=== PATIENT | female | born 1940 | race African-American/Black ===

== ENCOUNTER → 2020-05-17 | Outpatient (CLI) | payer OTHER ==
[~2020-05-17] MED LIST: ADVIL MULTI-SY1 EAC1 PO; AZITHROMYCIN 2250 MG PO; AZITHROMYCIN250 MG PO; BENICAR20 MG PO; CENTRUM SILVER1 EAC1 PO; ENDOCET 5-3251 EACH PO; ESTRACE0.5 MG PO; FENTANYL PA25 MCG/HR TRANSDERM; IBUPROFEN 800800 M1 PO; MUCINEX TA600 MG/TA2 PO; NORCO 7.5-3251 EACH; NORVASC5 MG PO; OXYCONTIN10 M1; PERCOCET PO; PREDNISONE 5 MG5 MG PO; PREMARIN0.3 MG PO; PROAIR HFA8.5 GM INH; ROBAXIN 750 MG750 M1; ROBITUSSIN COU118 M5 PO; SENOKOT-S1 TA1 PO; TUMS CHEWA500 MG/11 PO; TYLENOL325 MG PO; ZITHROMAX250 MG PO
== END ==
LOC: RAD 14:32
PROVIDERS: ATTEND Internal Medicine
DX: R07.9 Chest pain, unspecified (principal)

== ENCOUNTER → 2020-07-09 | Outpatient (CLI) | payer OTHER ==
[~2020-07-09] VITALS: Ht 154.9 cm; Wt 72.4 kg
[~2020-07-09] MED LIST changes: +AMITRIPTYLINE H10 M3 PO; +BAYER CHEWABLE81 MG PO; +FISH OIL 1,001000 M3 PO; +MEDROLDOSEPACK PO; +MOBIC15 MG PO; +NEURONTIN100 MG PO; +NEXIUM40 MG PO; +VITAMIN D325 MC3 PO
--- NOTE | ~2020-07-09 | HPC ---
[facility] [email or web address] [address] PAIN MANAGEMENT CONSULTATION Name: ITZEL LAW Room #: REG Yenny Rice.#: [id number] Admission: 07/09/20 Attend Phys: Katie Summers MD Discharge: Date of : 42 Report #: [id number] THIS REPORT FOR: cc: Ihsan Kirby MD, Mark A. MD Brown,Katie Jacobo MD ~ CC: Ihsan Summers DATE OF SERVICE: 07/09/2020 CHIEF COMPLAINT: Neck and right shoulder pain, right side greater than left. HISTORY: The patient is a 80-year-old female, who has been referred to the Pain Clinic for evaluation. She has cervical pain involving her neck, left arm with numbness. She has had a previous laminectomy and posterior fusion. The fusion was from C3-C7. The patient had pedicle screws placed. Last month, she started to note increased pain and discomfort involving the right arm. She has pain in the posterior portion of her shoulder blade with pain that radiates down into the arm and the forearm. The pain sometimes wakes her at night. She has been quite active. States that she was walking about a mile. She describes it as a constant ache with numbness and rates it as an 8/10. She has been started on gabapentin and is slowly titrating the level up. ALLERGIES: SULFA, THIOPENTAL, SEVERITY OF REACTION ____ 12/31/2014. MEDICATIONS: Aspirin 81 mg, Nexium 40 mg, vitamin D3, fish oil 1000 mg, gabapentin 100 mg 3 times a day, Estrace 0.5 mg. PAST MEDICAL HISTORY: Hiatal hernia, Schatzki ring, thyroid tumor resection, neck surgery by Dr. Gonzalez in 2014, bladder surgery in 2010. SOCIAL HISTORY: She is retired. REVIEW OF SYSTEMS: Wears glasses, ringing in the ears, sore throat, voice changes, numbness and tingling, lightheadedness, fevers and sweats, generally good health. DIAGNOSTIC DATA: Cervical spine MRI dated 09/27/2019, comparison made with CT 04/29/2015. Degenerative changes of the atlanto-occipital articulation present. C3/C7 vertebral bodies are fused. Mild broad posterior C7-T1 disk bulge is present with degenerative changes of the apophyseal joints. C3/C6 laminectomy defect is present. There are pedicle screws at C3, C4, C5 and C6 bilaterally with posterior rods. Spinal canal and neural foramen are normal in diameter. Spinal cord is normal in size. Foci of increased T2 and STIR signal are present in the spinal cord at C3-C4 and C5-C6. No abnormal contrast enhancement [address] [address] PAIN MANAGEMENT CONSULTATION Name: ITZEL LAW Room #: REG [facility].Sulaiman.#: [id number] Admission: 07/09/20 Attend Phys: Katie Summers MD Discharge: Date of : 42 Report #: [id number] present. Cervical vertebrae appear intact with normal marrow signal. T1-T2 and T2-T3 disk space heights reduced with endplate irregularity and posterior disk bulge/protrusions. Impression: 1. Fusion at C3 through C7 vertebral bodies. 2. C3/C6 laminectomy and pedicle screws with fusion. 3. Mild broad-based posterior C7-T1 disk bulging. 4. Posterior T1-T2 and T2-T3 disk bulge/protrusion. 5. Foci of signal abnormality in the spinal cord at C3-C4 and C5-C6, compatible with myelomalacia. PAIN CLINIC ASSESSMENT AND PQRS: 1. History of osteoarthritic changes in the neck. 2. The patient is not being treated for rheumatoid arthritis. 3. Height 5 feet 1 inch, weight 159 pounds, BMI 30. 4. Vital signs: Blood pressure 161/84, pulse 70, respiratory rate 16, room air saturation 100%. 5. Pain intensity: 8/10. 6. Fall history: The patient has not fallen in the last month. 7. Blood thinner: The patient is not on a blood thinning medication. 8. Hypertension: The patient is being treated for hypertension. 9. Opioids greater than 6 weeks: The patient is not on an opioid regimen. 10. Risk assessment tool: Low for opioid use. 11. Functional assessment tool: 48/70. 12. Recreational drug use: The patient denies. 13. Tobacco: The patient has never smoked. 14. Alcohol: The patient denies frequent use of alcoholic beverages. PHYSICAL EXAMINATION: GENERAL: The patient is a well-developed, well-nourished, black female. Appears her stated age. She is alert and oriented x 3. Her affect is appropriate. Speech is fluent. HEENT: Normocephalic, atraumatic. Extraocular eye muscles intact. The patient has a scar in the posterior portion of her occipital area down to the thoracic area. She has limited range of motion in her neck. She does complain of pain and discomfort in her right shoulder with pain down in her arms bilaterally, right side more problematic than the left. HEART: Regular rate. ABDOMEN: Nontender. LUNGS: Generally clear. MUSCULOSKELETAL: Muscle strength is judged to be 4+/5 for the major muscle groups in the upper extremity. Lower extremity muscle strength is judged to be 5-/5 for the major muscle groups in the lower extremity. IMPRESSION: [address] [address] PAIN MANAGEMENT CONSULTATION Name: ITZEL LAW Room #: REG [facility]#: [id number] Admission: 07/09/20 Attend Phys: Katie Summers MD Discharge: Date of : 42 Report #: [id number] 1. Cervical radiculopathy, right and left arm. 2. See the above past medical history. RECOMMENDATIONS: We discussed treatment options with the patient. She does have a significant problem. Given that the patient has had such a significant cervical history, I think a conservative approach would be reasonable. We will have the patient try amitriptyline 10 mg at bedtime. We will also have her try a nonsteroidal anti-inflammatory medication, Mobic; she will take 15 mg 1 tablet daily. She will also try Medrol Dosepak, a script for 21 tablets has been provided. We will consider, in the future, increasing the gabapentin to a higher level if she is able to tolerate it. We would like to thank you for letting us participate in her care. We hope she continues to improve. By: [id number] Katie Summers MD /nt
[2020-07-09 13:18] VITALS: BP 161/84
--- NOTE | 2020-07-09 14:01 | NUR ---
Pain Clinic Assessment: 1. History of Osteoarthritis: NECK History of Rheumatoid Arthritis: Not Applicable 2. Height: 5 ft. 1 in. 154.9 cm. Weight: 159.6 lb. oz. 72.394 kg. Patient's BMI: 30.2 3. Vital Signs: BP: 161/84 Pulse: 70 Resp: 16 Temp: 02 Sat: 100 ECG Mon: 4. Pain Intensity: 8 5. Fall Risk: Dizziness: Y Needs help standing or walking: N Fallen in the last 3 months: N Fall risk comments: 6. Patient on Blood Thinner: None 7. History of Hypertension: Y 8. Opioid Therapy greater than 6 weeks: N Opiate Contract Signed: 9. Risk Assessment Tool Provided: 0-LOW RISK 10. Functional Assessment Tool: 11. Recreational Drug Use: Never Drug Type: Tobacco Use: Never Smoker Tobacco Type: Amount or Packs/day: How Many Years: Alcohol Use: No Frequency: Quant:
== END ==
LOC: PAIN 06:57
PROVIDERS: ATTEND Anesthesiology Pain Medicine
DX: M54.12 Radiculopathy, cervical region (principal); M54.2 Cervicalgia; M25.512 Pain in left shoulder; M25.511 Pain in right shoulder